=== PATIENT | male | born 1945 | race Caucasian/White ===

== ENCOUNTER 2022-09-29 02:03 | Inpatient (IN) ==
[2022-09-29] MEDS ORDERED: Ondansetron 4 mg VIAL 2 MG/ML 2 ml VIAL IV PRN (03:47)
[2022-09-29 03:48] LABS: Hematocrit 33 % (42-52); Hemoglobin 10.5 g/dL (14.0-18.0); Mean Corpuscular HGB Conc 32 g/dL (31-36); Mean Corpuscular Hemoglobin 29 pg (27-31); Mean Corpuscular Volume 93 fL (80-94); Mean Platelet Volume 8.2 fL (7.4-10.4); Platelet Count 115 10^3/uL (150-450); Red Blood Count 3.58 10^6 /uL (4.18-5.48); Red Cell Distribution Width 16 % (10-15); White Blood Count 35.2 10^3/uL (3.5-10.8)
[2022-09-29] MEDS ORDERED: Cefepime 1 GM in Dextrose 1 GM/50 ML BAG IV SCH (04:00)
[2022-09-29 04:45] LABS: Albumin 3.2 g/dL (3.2-5.2); C Reactive Protein 167.21 mg/L (<8.01); Calcium 8.3 mg/dL (8.6-10.3); Globulin 3.1 g/dL (2-4); Total Bilirubin 0.6 mg/dL (0.2-1.0); Total Protein 6.3 g/dL (6.4-8.9); eGFR CKD-EPI 31.8 (>60)
[2022-09-29 04:46] LABS: Potassium 5.2 mmol/L (3.5-5.0)
[2022-09-29 04:53] LABS: ABS Basophils 0.1 10^3/ul (0-0.2); ABS Lymphocytes 0.8 10^3/ul (1.0-4.8); ABS Monocytes 1.9 10^3/ul (0-0.8); ABS Neutrophils 32.4 10^3/ul (1.5-7.7); Lymphocyte % 2.3 %
[2022-09-29] MEDS ORDERED: Lactated Ringers 1000 ml BAG 1,000 ML IV SCH (05:00)
[2022-09-29 05:07] LABS: Urine Color Red
[2022-09-29 05:08] LABS: Urine Appearance Turbid
[2022-09-29 05:33] LABS: Urine White Blood Cell 3+(>20/hpf) (Absent)
[2022-09-29 05:34] LABS: Urine Bacteria 3+ (Absent); Urine Red Blood Cell 3+(>10/hpf) (Absent)
[2022-09-29] MEDS: Lactated Ringers 1000 ml BAG 1,000 ML IV SCH ×2 (05:40→06:47)
[2022-09-29 10:49] LABS: ABS Basophils 0.1 10^3/ul (0-0.2); ABS Monocytes 1.7 10^3/ul (0-0.8); Eosinophil % 0.1 %; Hematocrit 31 % (42-52); Hemoglobin 9.9 g/dL (14.0-18.0); Lymphocyte % 3.7 %; Mean Corpuscular HGB Conc 32 g/dL (31-36); Mean Corpuscular Hemoglobin 30 pg (27-31); Mean Corpuscular Volume 93 fL (80-94); Red Cell Distribution Width 16 % (10-15); White Blood Count 25.7 10^3/uL (3.5-10.8)
[2022-09-29 11:09] LABS: Mean Platelet Volume 8.2 fL (7.4-10.4); Platelet Count 92 10^3/uL (150-450)
[2022-09-29 11:29] LABS: Anion Gap 5 mmol/L (2-11); Blood Urea Nitrogen 28 mg/dL (6-24); CO2 Carbon Dioxide 22 mmol/L (22-32); Calcium 8.3 mg/dL (8.6-10.3); Chloride 111 mmol/L (101-111); Glucose 97 mg/dL (70-100); Magnesium 1.5 mg/dL (1.9-2.7); Potassium 4.9 mmol/L (3.5-5.0); Sodium 138 mmol/L (135-145); eGFR CKD-EPI 33.1 (>60)
[2022-09-29] MEDS ORDERED: Magnesium Sulfate IV 3 GM in NS 0.9% 100 ml BAG 100 ML IVPB ONE (11:39)
[2022-09-29 12:05] LABS: Total Iron Binding Capacity 235 mcg/dL (250-450); Transferrin 168 mg/dL (203-362)
[2022-09-29 12:19] LABS: % Iron Saturation 9 % (15-55); Iron < 20 ug/dL (50-212); Unsaturated Iron Binding 215 ug/dL
[2022-09-29] MEDS ORDERED: cefTRIAXone 2 gm/50 mL D5W 2 GM/50 ML BAG IV SCH (15:30)
[2022-09-29] MEDS: cefTRIAXone 2 GM ADDV.VIAL 2 GM in NS 0.9% 100 ml BAG 100 ML IV SCH (17:31)
[2022-09-29] MEDS: HYDROcodone/ACETAMIN 5/325 mg TAB PO PRN (17:37)
[2022-09-30 05:48] LABS: ABS Eosinophils 0.2 10^3/ul (0-0.6); ABS Lymphocytes 1.1 10^3/ul (1.0-4.8); ABS Neutrophils 12.5 10^3/ul (1.5-7.7); Eosinophil % 1.1 %; Hematocrit 27 % (42-52); Hemoglobin 8.9 g/dL (14.0-18.0); Lymphocyte % 7.5 %; Mean Corpuscular HGB Conc 33 g/dL (31-36); Mean Corpuscular Hemoglobin 30 pg (27-31); Mean Corpuscular Volume 92 fL (80-94); Mean Platelet Volume 8.5 fL (7.4-10.4); Platelet Count 84 10^3/uL (150-450); Red Blood Count 2.94 10^6 /uL (4.18-5.48); Red Cell Distribution Width 16 % (10-15); White Blood Count 14.9 10^3/uL (3.5-10.8)
[2022-09-30 05:58] LABS: Calcium 7.9 mg/dL (8.6-10.3); Magnesium 2.2 mg/dL (1.9-2.7); Potassium 4.1 mmol/L (3.5-5.0); eGFR CKD-EPI 33.1 (>60)
[2022-09-30] MEDS: HYDROcodone/ACETAMIN 5/325 mg TAB PO PRN ×2 (07:38→17:30)
[2022-09-30] MEDS ORDERED: Iron Sucrose 20 MG/ML 5 ML VIAL IV PUSH SCH (09:00)
[2022-09-30] MEDS ORDERED: Cyanocobalamin INJ 1,000 MCG/ML VIAL 1 ML VIAL IM ONE (16:47)
[2022-09-30] MEDS: cefTRIAXone 2 GM ADDV.VIAL 2 GM in NS 0.9% 100 ml BAG 100 ML IV SCH (17:18)
[2022-10-01] MEDS: HYDROcodone/ACETAMIN 5/325 mg TAB PO PRN ×2 (01:32→10:46)
[2022-10-01 06:42] LABS: ABS Eosinophils 0.2 10^3/ul (0-0.6); ABS Lymphocytes 1.4 10^3/ul (1.0-4.8); ABS Monocytes 0.7 10^3/ul (0-0.8); ABS Neutrophils 9.3 10^3/ul (1.5-7.7); Hematocrit 27 % (42-52); Hemoglobin 8.9 g/dL (14.0-18.0); Lymphocyte % 12.2 %; Mean Corpuscular HGB Conc 33 g/dL (31-36); Mean Corpuscular Hemoglobin 31 pg (27-31); Mean Corpuscular Volume 92 fL (80-94); Mean Platelet Volume 8.4 fL (7.4-10.4); Platelet Count 112 10^3/uL (150-450); Red Blood Count 2.92 10^6 /uL (4.18-5.48); Red Cell Distribution Width 16 % (10-15); White Blood Count 11.7 10^3/uL (3.5-10.8)
[2022-10-01 06:57] LABS: Calcium 7.8 mg/dL (8.6-10.3); Potassium 4.2 mmol/L (3.5-5.0); eGFR CKD-EPI 30.4 (>60)
[2022-10-01 16:02] VITALS: BP 157/79
== END 2022-10-01 16:45 | disposition home or self-care (01) | DRG 872 ==
LOC: ED 02:03 → EDHOLD 02:03 → SUATTDRO 03:47 → EDHOLD 09:51 → MED 10:00
PROVIDERS: ADMIT Student in an Organized Health Care Education/Training Program; ATTEND Internal Medicine

== ENCOUNTER 2024-02-20 15:20 | Inpatient (IN) ==
[2024-02-20 16:33] LABS: Hematocrit 32.2 % (38-53); Hemoglobin 10.5 g/dL (13.2-16.3); Mean Corpuscular Hgb Conc 32.7 g/dL (31-36); Mean Corpuscular Volume 91.8 fL (80-97); Mean Platelet Volume 8.1 fL (7.5-11.2); Platelet Count 161 10^3/uL (150-450); Red Blood Count 3.51 10^6/uL (4.06-5.63); Red Cell Distribution Width 14.7 % (12-17); White Blood Count 16.9 10^3/uL (3.6-10.2)
[2024-02-20 16:40] LABS: ABS Basophils 0.1 10^3/uL (0.0-0.1); ABS Lymphocytes 0.7 10^3/uL (1.0-4.8); ABS Monocytes 2.4 10^3/uL (0.0-1.1); ABS Neutrophils 13.7 10^3/uL (1.5-7.6); ABS Nucleated RBC 0.02 10^3/ul; Nucleated Red Blood Cells % 0.1 %/100WBC (0.0-0.8)
[2024-02-20 16:46] LABS: INR 1.09 (0.83-1.13)
[2024-02-20 17:47] LABS: Calcium 8.6 mg/dL (8.6-10.3); Creatinine, Serum 3.37 mg/dL (0.67-1.17); Potassium 5.2 mmol/L (3.5-5.0); eGFR CKD-EPI 17.8 (>60)
[2024-02-20 18:15] LABS: Albumin 3.6 g/dL (3.2-5.2); Albumin/Globulin Ratio 1.2 (1-3); Total Bilirubin 1.3 mg/dL (0.2-1.0); Total Protein 6.6 g/dL (6.4-8.9)
[2024-02-20] MEDS ORDERED: Morphine 2 MG/ML SYRINGE IV PRN (20:50)
[2024-02-20] MEDS: HYDROcodone/ACET. 7.5/325 LIQ 15 ML UDC PO ONE (20:52)
[2024-02-20] MEDS: Morphine 4 MG/ML VIAL (1 ml) IV ONE (21:22)
[2024-02-20 22:36] LABS: Urine Appearance Turbid; Urine Bilirubin Negative (Negative); Urine Blood 2+ (Negative); Urine Color Yellow; Urine Glucose Negative (Negative); Urine Ketones Negative (Negative); Urine Nitrite Negative (Negative); Urine Protein 1+ (>=30 mg/dL) (Negative); Urine Specific Gravity 1.021 (1.002-1.030); Urine Urobilinogen Negative (Negative); Urine pH 5.5 (5.0-8.0)
[2024-02-20 22:43] LABS: Urine Bacteria Absent /HPF (Absent); Urine Red Blood Cell 1+(3-5/hpf) /HPF (0-Trace); Urine Squamous Epithelial Cell Present /HPF (Absent); Urine White Blood Cell 3+(>20/hpf) /HPF (0-Trace)
[2024-02-20] MEDS: Lactated Ringers 1000 ml BAG 500 ML IV ONE (23:26)
[2024-02-20] MEDS: Heparin 5000 UNITS/ML 1 mL VIAL SUBCUT SCH (23:31)
[2024-02-21 00:01] LABS: C Reactive Protein 417.49 mg/L (<8.01)
[2024-02-21 00:04] LABS: ABS Basophils 0.1 10^3/uL (0.0-0.1); ABS Lymphocytes 0.6 10^3/uL (1.0-4.8); ABS Monocytes 1.4 10^3/uL (0.0-1.1); ABS Neutrophils 12.3 10^3/uL (1.5-7.6); ABS Nucleated RBC 0.01 10^3/ul; Eosinophil % 0.1 %; Hematocrit 30.1 % (38-53); Lymphocyte % 4.4 %; Mean Corpuscular Hemoglobin 30.2 pg (27-33); Mean Corpuscular Hgb Conc 33.1 g/dL (31-36); Mean Corpuscular Volume 91.2 fL (80-97); Mean Platelet Volume 8.1 fL (7.5-11.2); Nucleated Red Blood Cells % 0.1 %/100WBC (0.0-0.8); Platelet Count 143 10^3/uL (150-450); Red Cell Distribution Width 14.5 % (12-17); White Blood Count 14.4 10^3/uL (3.6-10.2)
[2024-02-21] MEDS: Levalbuterol 1.25MG/0.5ML NEB.SOL INH ONE (00:09)
[2024-02-21] MEDS: Lactated Ringers 1000 ml BAG 1,000 ML IV SCH (00:32)
[2024-02-21 00:40] LABS: Creatinine, Serum 3.24 mg/dL (0.67-1.17); eGFR CKD-EPI 18.7 (>60)
[2024-02-21 00:48] LABS: Activated Partial Thrombo Time 28.7 seconds (26.0-38.0); INR 1.11 (0.83-1.13)
[2024-02-21] MEDS: SODIUM ZIRCONIUM CYCLOSILICATE 10 GM PACKET PO ONE (02:30)
[2024-02-21 02:52] LABS: Creatinine, Serum 3.2 mg/dL (0.67-1.17); Potassium 4.9 mmol/L (3.5-5.0)
[2024-02-21 05:49] LABS: Hematocrit 26.4 % (38-53); Hemoglobin 8.7 g/dL (13.2-16.3); Mean Corpuscular Hemoglobin 30.2 pg (27-33); Mean Corpuscular Hgb Conc 33.2 g/dL (31-36); Mean Platelet Volume 8.1 fL (7.5-11.2); Platelet Count 130 10^3/uL (150-450); Red Cell Distribution Width 14.4 % (12-17); White Blood Count 12.7 10^3/uL (3.6-10.2)
[2024-02-21 06:09] LABS: Albumin 2.9 g/dL (3.2-5.2); Albumin/Globulin Ratio 1.1 (1-3); Creatinine, Serum 3.17 mg/dL (0.67-1.17); Globulin 2.6 g/dL (2-4); Magnesium 2.1 mg/dL (1.9-2.7); Phosphorus 3.7 mg/dL (2.5-5.0); Potassium 4.7 mmol/L (3.5-5.0); Total Bilirubin 1.1 mg/dL (0.2-1.0); Total Protein 5.5 g/dL (6.4-8.9); eGFR CKD-EPI 19.2 (>60)
[2024-02-21 06:24] LABS: ABS Eosinophils 0.1 10^3/uL (0.0-0.5); ABS Lymphocytes 1.2 10^3/uL (1.0-4.8); ABS Monocytes 1.6 10^3/uL (0.0-1.1); ABS Neutrophils 9.7 10^3/uL (1.5-7.6); Eosinophil % 0.7 %; Lymphocyte % 9.4 %; TSH Ultra Thyroid Stim Horm 3.53 mcIU/mL (0.34-5.60)
[2024-02-21 06:35] LABS: Folate 11.07 ng/mL (5.90-24.80)
[2024-02-21] MEDS ORDERED: Sulfur Hexaflouride MICROSPHR 25 MG VIAL ONE (09:08)
[2024-02-21] MEDS: Aspirin EC 81 mg TAB.EC (enteric coated) PO SCH (09:19)
[2024-02-21] MEDS: Magnesium Hydroxide LIQ 30 ML UDC PO SCH (09:20)
[2024-02-21 10:08] LABS: ABS Eosinophils 0.2 10^3/uL (0.0-0.5); ABS Lymphocytes 0.6 10^3/uL (1.0-4.8); ABS Monocytes 1.2 10^3/uL (0.0-1.1); ABS Neutrophils 10.2 10^3/uL (1.5-7.6); Eosinophil % 1.3 %; Hemoglobin 8.8 g/dL (13.2-16.3); Lymphocyte % 4.7 %; Mean Corpuscular Hgb Conc 32.8 g/dL (31-36); Mean Corpuscular Volume 91.5 fL (80-97); Mean Platelet Volume 8.2 fL (7.5-11.2); Platelet Count 130 10^3/uL (150-450); Red Blood Count 2.95 10^6/uL (4.06-5.63); Red Cell Distribution Width 14.4 % (12-17); White Blood Count 12.1 10^3/uL (3.6-10.2)
[2024-02-21] MEDS ORDERED: Morphine 2 MG/ML SYRINGE IV PRN (10:57)
[2024-02-21 12:35] LABS: Calcium 7.8 mg/dL (8.6-10.3); Creatinine, Serum 2.93 mg/dL (0.67-1.17); Potassium 4.2 mmol/L (3.5-5.0); eGFR CKD-EPI 21.1 (>60)
[2024-02-21] MEDS: HYDROcodone/ACETAMIN 5/325 mg TAB PO SCH (12:49)
[2024-02-21 17:59] LABS: Calcium 7.6 mg/dL (8.6-10.3); Creatinine, Serum 2.72 mg/dL (0.67-1.17); Potassium 4.3 mmol/L (3.5-5.0)
[2024-02-22 06:14] LABS: Hematocrit 22.6 % (38-53); Hemoglobin 7.7 g/dL (13.2-16.3); Mean Corpuscular Hgb Conc 34.1 g/dL (31-36); Mean Corpuscular Volume 90.7 fL (80-97); Mean Platelet Volume 7.9 fL (7.5-11.2); Platelet Count 138 10^3/uL (150-450); Red Blood Count 2.49 10^6/uL (4.06-5.63); Red Cell Distribution Width 14.6 % (12-17); White Blood Count 8.7 10^3/uL (3.6-10.2)
[2024-02-22 06:31] LABS: Calcium 7.5 mg/dL (8.6-10.3); Creatinine, Serum 2.76 mg/dL (0.67-1.17); Potassium 4.3 mmol/L (3.5-5.0); eGFR CKD-EPI 22.6 (>60)
[2024-02-22] MEDS ORDERED: Propofol 10 MG/ML 20 ML BTL ONE (07:30)
[2024-02-22] MEDS ORDERED: Lidocaine 2% PF 5 ML VIAL ONE (07:30)
[2024-02-22] MEDS ORDERED: Ondansetron 4 mg VIAL 2 MG/ML 2 ml VIAL ONE (07:30)
[2024-02-22] MEDS ORDERED: Midazolam 2 mg/2 ml VIAL 1 mg/ml 2 ml VIAL (2 mg) ONE (07:30)
[2024-02-22] MEDS ORDERED: fentaNYL 100 mcg/2 ml 50 MCG/ML VIAL ONE (07:30)
[2024-02-22] MEDS ORDERED: Dexamethasone IV 4 MG/ML VIAL 1 ml VIAL ONE (07:30)
[2024-02-22] MEDS ORDERED: Phenylephrine IV 10 MG/ML 1 ml VIAL ONE (07:30)
[2024-02-22] MEDS ORDERED: Bupivacaine 0.5% 50 ML MDV VIAL ONE (08:56)
[2024-02-22] MEDS ORDERED: Naloxone 0.4 mg VIAL 0.4 mg/ml 1 ml VIAL IV PRN (09:13)
[2024-02-22] MEDS ORDERED: fentaNYL 100 mcg/2 ml 50 MCG/ML VIAL IV PRN (09:13)
[2024-02-22] MEDS ORDERED: Enoxaparin 30 MG/0.3 ML SYR SUBCUT SCH (11:00)
[2024-02-22] MEDS: NS 0.9% 1000 ml BAG 400 ML IV ONE (11:41)
[2024-02-22] MEDS: ceFAZolin 2 GM/50 ML BAG IV ONE (11:41)
[2024-02-22] MEDS: ceFAZolin 1 GM ADVAN 1 GM in NS 0.9% 50 ML 50 ML IVPB SCH (16:18)
[2024-02-22 16:39] LABS: Hematocrit 28.6 % (38-53); Hemoglobin 9.6 g/dL (13.2-16.3)
[2024-02-23 08:24] LABS: ABS Lymphocytes 0.4 10^3/uL (1.0-4.8); ABS Monocytes 0.9 10^3/uL (0.0-1.1); Hematocrit 26.8 % (38-53); Hemoglobin 8.9 g/dL (13.2-16.3); Lymphocyte % 3.4 %; Mean Corpuscular Hemoglobin 30.1 pg (27-33); Mean Corpuscular Hgb Conc 33.4 g/dL (31-36); Mean Corpuscular Volume 90.1 fL (80-97); Mean Platelet Volume 8.1 fL (7.5-11.2); Platelet Count 142 10^3/uL (150-450); Red Blood Count 2.97 10^6/uL (4.06-5.63); Red Cell Distribution Width 15.2 % (12-17); White Blood Count 12.3 10^3/uL (3.6-10.2)
[2024-02-23] MEDS: Enoxaparin 30 MG/0.3 ML SYR SUBCUT SCH (08:28)
[2024-02-23] MEDS: Senna TAB 8.6 mg TAB PO PRN (19:55)
[2024-02-24 05:56] LABS: ABS Lymphocytes 0.7 10^3/uL (1.0-4.8); ABS Monocytes 0.9 10^3/uL (0.0-1.1); ABS Neutrophils 10.2 10^3/uL (1.5-7.6); Hematocrit 25.6 % (38-53); Hemoglobin 8.6 g/dL (13.2-16.3); Lymphocyte % 6.3 %; Mean Corpuscular Hgb Conc 33.6 g/dL (31-36); Mean Corpuscular Volume 89.4 fL (80-97); Mean Platelet Volume 8.2 fL (7.5-11.2); Platelet Count 149 10^3/uL (150-450); Red Blood Count 2.86 10^6/uL (4.06-5.63); Red Cell Distribution Width 14.6 % (12-17); White Blood Count 11.8 10^3/uL (3.6-10.2)
[2024-02-24 08:52] LABS: Calcium 7.4 mg/dL (8.6-10.3); Creatinine, Serum 2.37 mg/dL (0.67-1.17); Potassium 4.3 mmol/L (3.5-5.0); eGFR CKD-EPI 27.2 (>60)
[2024-02-24 09:58] VITALS: BP 126/62
== END 2024-02-24 14:15 | disposition home or self-care (01) | DRG 493 ==
LOC: ED 15:20 → EDHOLD 15:20 → SUATTDRO 18:59 → SSU 23:17 → SUATTDRO 02-21 10:00
PROVIDERS: ADMIT Internal Medicine; ATTEND Internal Medicine